=== PATIENT | female | born 1985 | race Caucasian/White ===

== ENCOUNTER 2020-05-21 14:04 | Emergency (ER) | payer OTHER, SELFPAY ==
[2020-05-21 14:05] VITALS: BP 150/100; BP 163/94; PULSE 100; PULSE 95; RESP 22; TEMP 36.4; O2SAT 96; O2SAT 98; BMI 29.2
--- NOTE | 2020-05-21 14:35 | XR_ITS ---
EXAMINATION: XR CHEST CLINICAL INFORMATION: Chest pain. COMPARISON: None TECHNIQUE: 2 views of the chest were obtained. FINDINGS: No significant abnormality is noted involving the heart, lungs, mediastinum, bony thorax or soft tissues. XR/XR chest 2V IMPRESSION: Unremarkable chest exam.
--- NOTE | 2020-05-21 14:35 | ECG_ITS ---
Test Reason : CHEST PAIN Blood Pressure : / mmHG Vent. Rate : 104 BPM Atrial Rate : 104 BPM P-R Int : 154 ms QRS Dur : 084 ms QT Int : 360 ms P-R-T Axes : 062 049 040 degrees QTc Int : 473 ms Sinus tachycardia Possible Left atrial enlargement Borderline ECG No previous ECGs available Referred By: Moon Hernandez Electronically Signed By:LILI MATHEW MD
--- NOTE | 2020-05-21 14:36 | ED_ITS ---
HPI - Anxiety General Chief Complaint: Anxiety Stated Complaint: anxiety attack Time Seen by Provider: 05/21/20 14:26 Source: patient Mode of arrival: ambulatory Limitations: no limitations History of Present Illness HPI narrative: 34-year-old female with a past medical history of depression and anxiety here with complaints of anxiety. The patient tells me that around 12:00 o'clock she started to have a coughing fit and then she started to feel some chest burning and shortness of breath and anxiety. She tells me the symptoms now are improving although she still does have some chest discomfort. She has had some increased anxiety over the last few weeks and her Wellbutrin was discontinued and she was started on Zoloft. She tells me she has had some indigestion and chest burning over the last week. She contributed this to starting a new medication. She denies any leg swelling or pain, no fevers, chills, body aches, cough. Had one episode of vomiting on arrival and has some nausea now. No abdominal pain or diarrhea. She tells me she always feels anxious around this time because her mother several years ago. She does take Klonopin as needed. Today she felt like she was having heart attack and she became very concerned and brought herself to the emergency MD complaint: anxiety, shortness of breath and other (CP) Onset (ago): hour(s) Symptoms: dyspnea and chest pain Severity: moderate Quality: constant Place: home Provoking factors: none known Relieving factors: nothing Exacerbating factors: nothing Associated symptoms: chest pain, shortness of breath and nausea/vomiting Related Data Allergies Allergy/AdvReac Type Severity Reaction Status Date / Time No Known Allergies Allergy Verified 05/21/20 14:09 Review of Systems Review of Systems: Yes all other systems are reviewed and are negative Constitutional: Constitutional: Reports no additional constitutional complaints, Denies body ache(s), Denies chills, Denies fever(s), Denies headache(s) and Denies weakness Eyes: Eyes: Reports no additional eye complaints and Denies change in vision ENT: Reports system reviewed and no additional complaints, except as docume nted, Denies dizziness, Denies headache(s), Denies nasal congestion, Denies nasal discharge and Denies neck pain Cardiovascular: Cardiovascular: Reports no additional cardiovascular complaints, Reports chest pain, Denies leg edema and Reports dyspnea Respiratory: Respiratory: Reports no additional respiratory complaints, Denies cough and Reports dyspnea Gastrointestinal: Gastrointestinal: Reports no additional gastrointestinal complaints, Denies abdominal pain, Denies diarrhea, Reports nausea and Reports vomiting Genitourinary: Genitourinary: Reports no additional female genitourinary complaints and Denies urinary incontinence Musculoskeletal: Musculoskeletal: Reports no additional musculoskeletal complaints, Denies back pain, Denies arthralgias, Denies joint swelling, Denies neck pain, Denies numbness and Denies tingling Integumentary/Breasts: Skin/Breast: Reports system reviewed and no additional complaints, except as docu and Denies rash Neurologic: Reports system reviewed and no additional complaints, except as documented, Denies Abnormal speech present, Denies dizziness, Denies headache(s), Denies numbness, Denies tingling and Denies weakness Psychiatric: Psychiatric: Reports anxiety, Denies depression, Denies visual hallucinations, Denies hallucinations, Denies homicidal ideation and Denies suicidal ideation [facility] Past Medical History Attestation statement: The following information was validated with the patient. Medical History Anxiety Depression Social History Social History Alcohol intake: current Smoking Status: Never smoker Use of substances other than those prescribed or required for medical reasons: No Advance Directives: No Advance Directives Information Provided: No Physical Exam Vital Signs: Vital Signs: Last Vital Signs Temp 98.9 F 05/21/20 15:33 Pulse 105 H 05/21/20 16:00 Resp 16 05/21/20 16:00 BP 141/104 H 05/21/20 16:00 Pulse Ox 97 05/21/20 16:00 Body Mass Index 29.2 Const: General: cooperative, healthy appearing, comfortable and no acute distress Orientation/consciousness: patient oriented x3 Limitations: no limitations HENMT: Head: Yes normal to inspection Ears: hearing grossly normal bilaterally General nose exam: Normal external nose present Face and sinus: Yes normal facial exam Mouth: Normal oral and palatal mucosa present Throat: Yes posterior oropharynx normal Eyes: General: appearance normal, both eyes and all related structures Pupils: Equal, round and reactive pupils present Neck: Neck: Yes normal visual inspection Chest: Chest palpation & inspection: normal inspection of the chest Resp: Effort & Inspection: normal respiratory effort Auscultation: clear to auscultation bilaterally Cardio: Rate: regular rate Rhythm: regular rhythm Peripheral pulses: Peripheral pulses 2+ throughout GI: Inspection: Yes normal to inspection Palpation (GI): Soft to palpation and nontender Auscultation: normal bowel sounds Back/Spine/Pelvis: Thoracic/Lumbar Spine: thoracic and lumbar spine normal to inspection Skin: General skin exam: no rashes or lesions noted Neuro: General: patient oriented x3, no focal motor deficits and normal sensation to monofilament Cranial nerves: Yes Equal, round and reactive pupils present Cognition (Neuro): normal cognition Speech: No Abnormal speech present Gait exam (Neuro): Normal gait present Motor exam (neuro): 5/5 motor strength present throughout Extrem: General: Yes normal to inspection Course Course Course Narrative: 34-year-old female with a past medical history of anxiety and depression here with episode of chest burning, shortness of breath and anxiety which began at rest 2-1/2 hours ago. On arrival the patient did have 1 episode of vomiting. She is complaining of some improving symptoms but still has some residual chest discomfort, anxiety and nausea. She does tell me that she has had some indigestion for the last week. She did have some changes in her anx iety medications this month. She always has anxiety around [place] due to loss of a family member. May be anxiety related. However, will check labs, EKG, chest x-ray. 1700-Mg is 1.4. Recommended patient have an IV and IV replacement but she declined this. She would prefer oral replacement. She is feeling much improved would like to be discharged home after receiving a dose of Ativan here. Labs including troponin unremarkable. EKG and chest x-ray unremarkable. Likely panic attack. Patient will follow-up with her psychiatrist and has appointment today. Reviewed worrisome signs and symptoms when to return to the emergency department. Comfortable discharge home. MDM - Anxiety MDM Narrative Medical decision making narrative: ACS, anxiety,GERD Medical Records Attestation: I reviewed the patient's medical records. Lab Data Attestation: I reviewed the patient's lab results. Result diagrams: 05/21/20 15:39 05/21/20 15:39 Labs: Lab Results 12/23/20 12/23/20 12/23/20 Range/Units 15:39 15:39 15:39 WBC 13.5 H (4.8-10.8) X10*3/uL RBC 4.50 (4.20-5.50) X10*6/uL Hgb 14.2 (12.0-16.0) g/dl Hct 41.8 (37-47) % MCV 92.9 (80-98) fL MCH 31.6 (27.0-33.0) pg MCHC 34.0 (31.0-35.0) g/dl RDW 12.4 (11.0-16.0) % Plt Count 205 (160-400) X10*3/uL MPV 10.1 (9.4-12.3) fL Immature Gran % (Auto) 0.5 H (0.0-0.4) % Neut % (Auto) 93.9 H (45-73) % Lymph % (Auto) 3.3 L (20-40) % [place] % (Auto) 2.1 (2-11) % Eos % (Auto) 0.0 (0-4) % Baso % (Auto) 0.2 (0-2) % Lymph # (Auto) 0.5 L (1.2-4.9) X10*3/uL [place] # (Auto) 0.3 (0.1-1.2) X10*3/uL Eos # (Auto) 0.0 (0.0-0.4) X10*3/uL Baso # (Auto) 0.0 (0.0-0.2) X10*3/uL Abs Immat Gran (auto) 0.07 H (0.00-0.03) X10*3/uL Absolute Neuts (auto) 12.7 H (2.0-8.3) X10*3/uL Absolute Nucleated RBC 0.000 (0.0-0.012) X10*3/uL Nucleated RBC % (auto) 0.0 (0.0-0.2) /100WBC Smear Tech's Comments VERIFIED Hold Blue Top Sodium 137 (135-145) mmol/L Potassium 4.0 (3.3-5.1) mmol/l Chloride 99 (96-108) mmol/L Carbon Dioxide 24 (22-29) mmol/L Anion Gap 18 (12-20) BUN 9 (9-16) mg/dL Creatinine 0.94 (0.5-1.4) mg/dL Estim Creat Clear Calc 68.9 Estimated GFR > 60 Random Glucose 174 H (60-115) mg/dL Calcium 9.1 (8.4-10.2) mg/dL Magnesium 1.4 L* (1.6-2.6) mg/dL Total Bilirubin 1.0 (0.0-1.0) mg/dL Direct Bilirubin 0.5 (0.0-0.5) mg/dL AST 39 H (5-31) U/L ALT 50 H (0-31) U/L Alkaline Phosphatase 75 (39-117) U/L Troponin I High Sens < 3.5 (<3.5-17.0) ng/L Total Protein 7.3 (6.5-8.0) g/dL Albumin 4.4 (3.5-5.0) g/dL 05/21/20 Range/Units 15:39 WBC (4.8-10.8) X10*3/uL RBC (4.20-5.50) X10*6/uL Hgb (12.0-16.0) g/dl Hct (37-47) % MCV (80-98) fL MCH (27.0-33.0) pg MCHC (31.0-35.0) g/dl RDW (11.0-16.0) % Plt Count (160-400) X10*3/uL MPV (9.4-12.3) fL Immature Gran % (Auto) (0.0-0.4) % Neut % (Auto) (45-73) % Lymph % (Auto) (20-40) % [place] % (Auto) (2-11) % Eos % (Auto) (0-4) % Baso % (Auto) (0-2) % Lymph # (Auto) (1.2-4.9) X10*3/uL [place] # (Auto) (0.1-1.2) X10*3/uL Eos # (Auto) (0.0-0.4) X10*3/uL Baso # (Auto) (0.0-0.2) X10*3/uL Abs Immat Gran (auto) (0.00-0.03) X10*3/uL Absolute Neuts (auto) (2.0-8.3) X10*3/uL Absolute Nucleated RBC (0.0-0.012) X10*3/uL Nucleated RBC % (auto) (0.0-0.2) /100WBC Smear Tech's Comments Hold Blue Top SEE NOTE Sodium (135-145) mmol/L Potassium (3.3-5.1) mmol/l Chloride (96-108) mmol/L Carbon Dioxide (22-29) mmol/L Anion Gap (12-20) BUN (9-16) mg/dL Creatinine (0.5-1.4) mg/dL Estim Creat Clear Calc Estimated GFR Random Glucose (60-115) mg/dL Calcium (8.4-10.2) mg/dL Magnesium (1.6-2.6) mg/dL Total Bilirubin (0.0-1.0) mg/dL Direct Bilirubin (0.0-0.5) mg/dL AST (5-31) U/L ALT (0-31) U/L Alkaline Phosphatase (39-117) U/L Troponin I High Sens (<3.5-17.0) ng/L Total Protein (6.5-8.0) g/dL Albumin (3.5-5.0) g/dL Imaging Data Chest x-ray: Attestation: I personally reviewed and interpreted this imaging study as follows: Radiologist's impression: EXAMINATION: XR CHEST CLINICAL INFORMATION: Chest pain. COMPARISON: None TECHNIQUE: 2 views of the chest were obtained. FINDINGS: No significant abnormality is noted involving the heart, lungs, mediastinum, bony thorax or soft tissues. XR/XR chest 2V IMPRESSION: Unremarkable chest exam. ECG Data Attestation: I personally reviewed and interpreted this ECG as follows: ECG interpretation date: 05/21/20 ECG interpretation time: 15:26 Interpretation: Sinus tachycardia with a rate of 104, normal MA, normal QRS, normal QT Discharge Plan Discharge Clinical Impression: Acute anxiety, Hypomagnesemia Patient Disposition: Home, Self-Care Instructions: Hypomagnesemia (ED), Anxiety (ED) Referrals: Physician,Unknown [Primary Care Provider] - 2 days Interventions: ED Discharge Assessment Last Done: 05/21/20 16:56 Discharge Date/Time: 05/21/20 16:56
[2020-05-21] MEDS: LORazepam 1 MG TABLET PO (14:55)
[2020-05-21 15:33] VITALS: BP 140/100; PULSE 100; RESP 16; TEMP 37.2; O2SAT 99
[2020-05-21 15:48] LABS: Basophils Percent Auto 0.2 % (0-2); Hematocrit 41.8 % (37-47); Hemoglobin 14.2 g/dl (12.0-16.0); Imm Gran Abs Auto 0.07 X10*3/uL (0.00-0.03); Imm Gran Pct Auto 0.5 % (0.0-0.4); Lymphocytes Absolute Auto 0.5 X10*3/uL (1.2-4.9); Lymphocytes Percent Auto 3.3 % (20-40); MANUAL DIFF FLAG SCAN; Mean Corpuscular Hemoglobin 31.6 pg (27.0-33.0); Mean Corpuscular Volume 92.9 fL (80-98); Mean Platelet Volume 10.1 fL (9.4-12.3); Monocytes Absolute Auto 0.3 X10*3/uL (0.1-1.2); Monocytes Percent Auto 2.1 % (2-11); Neutrophils Absolute Auto 12.7 X10*3/uL (2.0-8.3); Neutrophils Percent Auto 93.9 % (45-73); Platelet Count 205 X10*3/uL (160-400); Red Cell Distribution Width 12.4 % (11.0-16.0); SCAN SMEAR FLAG 1; White Blood Count 13.5 X10*3/uL (4.8-10.8)
[2020-05-21 16:00] VITALS: BP 141/104; PULSE 105; RESP 16; O2SAT 97
--- NOTE | 2020-05-21 16:10 | PC.NURSE ---
Pt verbally reports feeling better with nausea and anxiety. States recent med changes with wellbutrin to Zoloft. Awaiting lab results.
[2020-05-21 16:14] LABS: SLIDE REVIEW VERIFIED; Troponin-I High Sensitivity < 3.5 ng/L (<3.5-17.0)
[2020-05-21 16:15] LABS: Alanine Aminotransferase 50 U/L (0-31); Albumin Level 4.4 g/dL (3.5-5.0); Alkaline Phosphatase 75 U/L (39-117); Anion Gap 18 (12-20); Aspartate Amino Transferase 39 U/L (5-31); Bilirubin Direct 0.5 mg/dL (0.0-0.5); Blood Urea Nitrogen 9 mg/dL (9-16); Calcium 9.1 mg/dL (8.4-10.2); Carbon Dioxide 24 mmol/L (22-29); Chloride 99 mmol/L (96-108); Creatinine Clr Calc Pharmacy 68.9; Estimated Glomerular Filt Rate > 60; Glucose Random 174 mg/dL (60-115); Magnesium 1.4 mg/dL (1.6-2.6); Sodium 137 mmol/L (135-145); Total Protein 7.3 g/dL (6.5-8.0)
--- NOTE | 2020-05-21 16:47 | PC.NURSE ---
Pt states her ride is on their way, declines IV magenesium at this time, Moon BARCENAS aware
== END 2020-05-21 16:56 | disposition home or self-care (01) ==
PROVIDERS: Nurse Practitioner Family; Emergency Provider Emergency Medicine
DX: F41.9 Anxiety disorder, unspecified (principal); E83.42 Hypomagnesemia; Z79.899 Other long term (current) drug therapy
CPT/HCPCS: 36415; 71046; 80048; 80076; 83735; 84484; 85025; 93005; 96365; 99284